=== PATIENT | male | born 1955 | race Caucasian/White ===

== ENCOUNTER → 2019-02-13 | Outpatient (REF) | payer OTHER, MEDICAID | LOC: M SFHCPLAZ 18:44 | PROVIDERS: ATTEND Dermatology | DX: C44.612 Basal cell carcinoma of skin of right upper limb, including shoulder (principal); L82.1 Other seborrheic keratosis ==

== ENCOUNTER → 2019-02-22 | Outpatient (REF) | payer OTHER, MEDICAID | LOC: M LAB REF 18:50 | PROVIDERS: ATTEND Dermatology | DX: L82.1 Other seborrheic keratosis (principal); D48.9 Neoplasm of uncertain behavior, unspecified ==

== ENCOUNTER → 2021-06-15 | Outpatient (REF) | payer OTHER, MEDICAID | LOC: M SFHCDERM 14:10 | PROVIDERS: ATTEND Nurse Practitioner Family | DX: L57.0 Actinic keratosis (principal); L73.9 Follicular disorder, unspecified ==

== ENCOUNTER → 2021-11-16 | Outpatient (CLI) | payer MEDICARE, OTHER ==
[2021-11-16 11:07] LABS: HEMATOCRIT 40.7 % (42.0-52.0); HEMOGLOBIN 13.8 g/dl (13.5-17.5); MEAN CORPUSCULAR HEMOGLOBIN 31.5 pg (27.0-33.0); MEAN CORPUSCULAR HGB CONC 33.9 g/dl (32.0-36.5); MEAN CORPUSCULAR VOLUME 92.9 fl (80.0-96.0); PLATELET COUNT, AUTOMATED 151 10^3/uL (150-450); RED BLOOD COUNT 4.38 10^6/uL (4.30-6.10); WHITE BLOOD COUNT 5.4 10^3/uL (4.0-10.0)
[2021-11-16 11:20] LABS: INR 1.09; PROTHROMBIN TIME 14.6 SECONDS (12.7-14.5)
[2021-11-16 11:31] LABS: ERYTHROCYTE SEDIMENTATION RATE 5 mm/hr (0-20)
[2021-11-16 12:06] LABS: ALBUMIN 3.8 GM/DL (3.2-5.2); ALT/SGPT 31 U/L (12-78); BILIRUBIN,TOTAL 0.8 MG/DL (0.2-1.0); BLOOD UREA NITROGEN 8 MG/DL (7-18); CARBON DIOXIDE LEVEL 32 MEQ/L (21-32); CHLORIDE LEVEL 100 MEQ/L (98-107); CREATININE FOR GFR 0.64 MG/DL (0.70-1.30); GLOMERULAR FILTRATION RATE > 60.0 (>49); GLUCOSE, FASTING 274 MG/DL (70-100); POTASSIUM SERUM 4.3 MEQ/L (3.5-5.1); SODIUM LEVEL 136 MEQ/L (136-145); TOTAL PROTEIN 7.3 GM/DL (6.4-8.2)
== END ==
LOC: M RAD 09:48
PROVIDERS: ATTEND Orthopaedic Surgery
DX: M17.12 Unilateral primary osteoarthritis, left knee (principal); R94.31 Abnormal electrocardiogram [ECG] [EKG]

== ENCOUNTER → 2023-03-11 | Outpatient (CLI) | payer MEDICARE ==
[~2023-03-11] MED LIST: ISOVUE-300 61% 100ML VIAL As Ordered ONE; LIDOCAINE 1% MDV 20ML VIAL As Ordered ONE; methylPREDNISolone SUSP 40MG/ML 1ML VIAL (DEPO MEDROL) As Ordered ONE
== END ==
LOC: M RAD 14:24
PROVIDERS: ATTEND Physician Assistant
DX: M19.011 Primary osteoarthritis, right shoulder (principal)
CPT/HCPCS: 20610; 77002; J1030; Q9967

== ENCOUNTER → 2023-04-25 | Outpatient (CLI) | payer MEDICARE | LOC: M PLAIMG 06:57 | PROVIDERS: ATTEND Physician Assistant | DX: M19.011 Primary osteoarthritis, right shoulder (principal); Z53.9 Procedure and treatment not carried out, unspecified reason ==

== ENCOUNTER → 2023-05-06 | Outpatient (CLI) | payer MEDICARE | LOC: M PLAIMG 06:54 | PROVIDERS: ATTEND Physician Assistant | DX: M19.011 Primary osteoarthritis, right shoulder (principal); M75.111 Incomplete rotator cuff tear or rupture of right shoulder, not specified as traumatic; M25.711 Osteophyte, right shoulder ==